=== PATIENT | female | born 1940 | race Caucasian/White ===

== ENCOUNTER → 2017-07-17 | Outpatient (CLI) | payer MEDICARE ==
[~2017-07-17] MED LIST: ACYC400T PO; ASPI-1197 PO; CHOL100034 PO; CLON0.5T4 PO; OMEG1CAP6 PO; ROSU20TA PO; SERT100T12 PO; SERT50TA PO
== END | disposition home or self-care (01) ==
LOC: RAH 11:11
PROVIDERS: ATTEND Obstetrics & Gynecology
DX: Z12.31 Encounter for screening mammogram for malignant neoplasm of breast (principal)
CPT/HCPCS: 77067

== ENCOUNTER → 2018-09-06 | Outpatient (CLI) | payer MEDICARE ==
[~2018-09-06] MED LIST changes: +CLON0.5T12 PO; -CLON0.5T4 PO
== END | disposition home or self-care (01) ==
LOC: SHCH 12:44
PROVIDERS: ATTEND Internal Medicine Cardiovascular Disease
DX: I65.23 Occlusion and stenosis of bilateral carotid arteries (principal)
CPT/HCPCS: 93880